=== PATIENT | female | born 1930 | race Caucasian/White ===

== ENCOUNTER → 2016-10-01 | Outpatient (CLI) | payer BC ==
[~2016-10-01] MED LIST: ASCA500 PO; ATOR-24 PO; BIMA0.038 OPB; CALCTAB5 PO; CMD/25 PO; CYAN10004 PO; EPP3/2; FERR1TAB23 PO; FLV1 PO; LISI-461 PO; LISI20TA PO; PANT40TA PO; TRAM-10 PO
[2016-10-01 08:33] LABS: INR 2.2 (0.9-1.1); PROTHROMBIN TIME (PATIENT) 24.6 SECONDS (9.0-12.0)
== END | disposition home or self-care (01) ==
LOC: C.LABOUTLO 08:07
PROVIDERS: ATTEND Internal Medicine
DX: I48.91 Unspecified atrial fibrillation (principal)

== ENCOUNTER → 2016-10-14 | Outpatient (CLI) | payer BC ==
[2016-10-14 10:19] LABS: INR 2.1 (0.9-1.1); PROTHROMBIN TIME (PATIENT) 23.4 SECONDS (9.0-12.0)
== END | disposition home or self-care (01) ==
LOC: C.LABOUTLO 09:51
PROVIDERS: ATTEND Internal Medicine
DX: I48.91 Unspecified atrial fibrillation (principal)

== ENCOUNTER → 2016-10-20 | Outpatient (CLI) | payer BC ==
[2016-10-20 10:06] LABS: INR 2.1 (0.9-1.1)
== END | disposition home or self-care (01) ==
LOC: C.LABOUTLO 09:24
PROVIDERS: ATTEND Internal Medicine
DX: I48.91 Unspecified atrial fibrillation (principal)

== ENCOUNTER → 2016-10-22 | Outpatient (CLI) | payer BC ==
[2016-10-22 09:34] LABS: BASO % 1.1 %; BASO ABS # 0.06 K/uL (0-0.2); COMPLETE YES; EOS % 8.4 %; HEMATOCRIT 29.7 % (37-47); IG% 0.2 %; LYMPH % 33.2 %; LYMPH ABS # 1.85 K/uL (1.2-3.4); MEAN CELL VOLUME 86.3 fL (80-100); MEAN CORPUSCULAR HEMOGLOBIN 27.6 pg (25-34); MEAN PLATELET VOLUME 10.8 fL (7.4-10.4); MONO % 16.2 %; NEUT % 40.9 %; PLATELET COUNT 206 K/uL (130-400); RED BLOOD COUNT 3.44 M/uL (4.2-5.4); WHITE BLOOD COUNT 5.57 K/uL (4.8-10.8)
[2016-10-22 09:41] LABS: ALT/SGPT 17 U/L (12-78); AST/SGOT 13 U/L (15-37); BLOOD UREA NITROGEN 17 mg/dl (7-18); BUN/CREATININE RATIO 13.9 (10-20); CALCIUM 9.3 mg/dl (8.5-10.1); CARBON DIOXIDE 29 mmol/L (21-32); CHLORIDE 104 mmol/L (98-107); GLUCOSE 83 mg/dl (70-99); POTASSIUM 4.1 mmol/L (3.5-5.1); SODIUM 142 mmol/L (136-145)
[2016-10-22 09:46] LABS: ALB/GLOB RATIO 0.8 (0.9-2); ALKALINE PHOSPHATASE 61 U/L (45-117); FERRITIN 133.5 ng/ml (8.0-388.0)
--- NOTE | 2016-10-25 10:16 | CODING QUERY NO DIAGNOSIS ---
TREATMENT RENDERED WITHOUT A DIAGNOSIS To promote full compliance with coding requirements relating to patient care, physician participation is requested in all cases of death surveys coder uncertainty. Please assist us with providing a diagnosis/symptom for the test(s) below: A diagnosis/symptom was not documented on your Order. A valid diagnosis/symptom is required to bill all insurances. Please remember that we are unable to code a diagnosis of rule out, probable, possible, questionable, or suspected. Tests that require a diagnosis: * CMP DIAGNOSIS: * FERRITIN DIAGNOSIS: * CBC W/ AUTO DIFF DIAGNOSIS: Provider Signature: Date: Thank you Dayanara Robles [employer] Information Management Once completed, please kindly fax back to [phone] For questions please call [phone]
== END | disposition home or self-care (01) ==
LOC: C.LABOUTLO 09:17
PROVIDERS: ATTEND Internal Medicine
DX: E78.00 Pure hypercholesterolemia, unspecified (principal); I48.0 Paroxysmal atrial fibrillation; D64.9 Anemia, unspecified

== ENCOUNTER → 2016-12-03 | Outpatient (CLI) | payer BC ==
--- NOTE | 2016-12-03 15:30 | MAMMOGRAPHY REPORT ---
UNILATERAL RIGHT DIGITAL SCREENING MAMMOGRAM TOMOSYNTHESIS WITH CAD: 12/03/2016 TECHNIQUE: Breast tomosynthesis in addition to standard 2D mammography was performed. Current study was also evaluated with a Computer Aided Detection (CAD) system. Right CC and MLO 2-D and tomosynt hesis images were obtained. COMPARISON: Comparison is made to exams dated: 12/03/2015 mammogram, 12/01/2014 mammogram, 11/25/2013 ma mmogram, 11/22/2012 mammogram, 11/17/2011 mammogram, and 11/14/2010 mammogram - [facility] enter. BREAST COMPOSITION: The tissue of the right breast is heterogeneously dense, which may obscure smal l masses. FINDINGS: There are no suspicious masses, calcifications, or areas of architectural distortion note d in the right breast. There has been no significant interval change compared to prior exams. Faraz gn-appearing right breast calcifications are not significantly changed. IMPRESSION: ACR BI-RADS CATEGORY 2: BENIGN There is no mammographic evidence of malignancy. A 1 year screening mammogram is recommended. The p atient will receive written notification of the results. Approximately 10% of breast cancers are not detected with mammography. A negative mammographic repor t should not delay biopsy if a clinically suggestive mass is present. Diana Martinez M.D. ah/:12/03/2016 15:18:58 Manager [employer]: Samira LEVY(R)(M), [facility] letter sent: Normal 1/2 BI-RADS Code: ACR BI-RADS Category 2: Benign
== END | disposition home or self-care (01) ==
LOC: C.MAMM 13:30
PROVIDERS: ATTEND Internal Medicine
DX: Z12.31 Encounter for screening mammogram for malignant neoplasm of breast (principal); Z90.12 Acquired absence of left breast and nipple

== ENCOUNTER → 2016-12-08 | Outpatient (CLI) | payer BC ==
[2016-12-08 09:51] LABS: BASO % 0.2 %; BASO ABS # 0.02 K/uL (0-0.2); COMPLETE YES; HEMATOCRIT 37.2 % (37-47); IG% 0.4 %; LYMPH % 23.1 %; LYMPH ABS # 2.74 K/uL (1.2-3.4); MEAN CELL VOLUME 84.9 fL (80-100); MEAN CORPUSCULAR HEMOGLOBIN 28.1 pg (25-34); MEAN CORPUSCULAR HGB CONC 33.1 g/dl (32-36); MONO % 9.5 %; NEUT % 65.8 %; PLATELET COUNT 251 K/uL (130-400); RED BLOOD COUNT 4.38 M/uL (4.2-5.4); WHITE BLOOD COUNT 11.88 K/uL (4.8-10.8)
[2016-12-08 10:27] LABS: ALT/SGPT 16 U/L (12-78); AST/SGOT 17 U/L (15-37); BLOOD UREA NITROGEN 31 mg/dl (7-18); BUN/CREATININE RATIO 22.4 (10-20); CALCIUM 9.8 mg/dl (8.5-10.1); CARBON DIOXIDE 27 mmol/L (21-32); CHLORIDE 103 mmol/L (98-107); CHOLESTEROL 133 mg/dl (0-200); GLUCOSE 99 mg/dl (70-99); POTASSIUM 4.1 mmol/L (3.5-5.1); SODIUM 138 mmol/L (136-145)
[2016-12-08 10:39] LABS: ALB/GLOB RATIO 0.9 (0.9-2); ALKALINE PHOSPHATASE 71 U/L (45-117); CHOLESTEROL/HDL RATIO 2.5; FERRITIN 173.5 ng/ml (8.0-388.0); HDL CHOLESTEROL 54 mg/dl; LDL CHOLESTEROL CALCULATED 59 mg/dl; THYROID STIMULATING HORMONE 0.245 uIu/ml (0.300-4.500); TRIGLYCERIDES 102 mg/dl (0-150); VERY LOW DENSITY LIPOPROT CALC 20 mg/dl
--- NOTE | 2016-12-24 10:12 | CODING QUERY MEDICAL NECESSITY ---
CQSUPPORTING DIAGNOSIS NEEDED A supporting diagnosis is required for the test/procedure performed on this patient in order for us to be reimbursed by the patient's insurance. Please provide a supporting diagnosis for the following test/procedure listed below next to the test name along with your signature. *If there is no additional diagnosis for this patient that would support the following test/procedure please document that below next to the test/procedure. Test(s)/Procedure(s) that require a supporting diagnosis: DOS 12/08/16 VITAMIN B12 TEST Provider Signature: Date: Thank you Carleen Hidalgo Health Information Management Once completed, please kindly fax back to [phone] For questions please call [phone]
== END | disposition home or self-care (01) ==
LOC: C.LAB1850 08:34
PROVIDERS: ATTEND Internal Medicine
DX: R63.4 Abnormal weight loss (principal); D64.9 Anemia, unspecified; E78.00 Pure hypercholesterolemia, unspecified; I48.0 Paroxysmal atrial fibrillation; R74.8 Abnormal levels of other serum enzymes

== ENCOUNTER → 2017-02-02 | Outpatient (CLI) | payer BC ==
[~2017-02-02] MED LIST changes: -TRAM-10 PO
[2017-02-02 09:34] LABS: BASO % 0.7 %; BASO ABS # 0.05 K/uL (0-0.2); COMPLETE YES; EOS % 3.3 %; HEMATOCRIT 32.9 % (37-47); IG% 0.3 %; LYMPH % 32.9 %; MEAN CELL VOLUME 90.1 fL (80-100); MEAN CORPUSCULAR HEMOGLOBIN 29.6 pg (25-34); MEAN CORPUSCULAR HGB CONC 32.8 g/dl (32-36); MEAN PLATELET VOLUME 10.9 fL (7.4-10.4); MONO % 9.6 %; NEUT % 53.2 %; PLATELET COUNT 197 K/uL (130-400); RED BLOOD COUNT 3.65 M/uL (4.2-5.4); WHITE BLOOD COUNT 6.69 K/uL (4.8-10.8)
[2017-02-02 10:09] LABS: BLOOD UREA NITROGEN 21 mg/dl (7-18); BUN/CREATININE RATIO 17.3 (10-20); CALCIUM 9.3 mg/dl (8.5-10.1); CARBON DIOXIDE 28 mmol/L (21-32); CHLORIDE 105 mmol/L (98-107); GLUCOSE 91 mg/dl (70-99); POTASSIUM 3.4 mmol/L (3.5-5.1); SODIUM 141 mmol/L (136-145)
[2017-02-02 10:20] LABS: THYROID STIMULATING HORMONE 0.455 uIu/ml (0.300-4.500)
== END | disposition home or self-care (01) ==
LOC: C.LAB1850 07:21
PROVIDERS: ATTEND Internal Medicine
DX: D64.9 Anemia, unspecified (principal); N28.9 Disorder of kidney and ureter, unspecified; R41.89 Other symptoms and signs involving cognitive functions and awareness

== ENCOUNTER → 2017-03-02 | Outpatient (CLI) | payer BC ==
[2017-03-02 12:40] LABS: BASO % 0.7 %; BASO ABS # 0.05 K/uL (0-0.2); COMPLETE YES; EOS % 1.8 %; HEMATOCRIT 34.3 % (37-47); IG% 0.1 %; LYMPH % 29.2 %; LYMPH ABS # 2.23 K/uL (1.2-3.4); MEAN CELL VOLUME 93.5 fL (80-100); MEAN CORPUSCULAR HEMOGLOBIN 30.8 pg (25-34); MEAN CORPUSCULAR HGB CONC 32.9 g/dl (32-36); MEAN PLATELET VOLUME 11.1 fL (7.4-10.4); MONO % 6.8 %; NEUT % 61.4 %; PLATELET COUNT 182 K/uL (130-400); RED BLOOD COUNT 3.67 M/uL (4.2-5.4); WHITE BLOOD COUNT 7.65 K/uL (4.8-10.8)
[2017-03-02 12:45] LABS: POTASSIUM 3.9 mmol/L (3.5-5.1)
[2017-03-02 12:54] LABS: FERRITIN 142.1 ng/ml (8.0-388.0)
== END | disposition home or self-care (01) ==
LOC: C.LAB 10:02
PROVIDERS: ATTEND Internal Medicine
DX: D64.9 Anemia, unspecified (principal); E87.6 Hypokalemia; I48.0 Paroxysmal atrial fibrillation

== ENCOUNTER → 2017-06-11 | Outpatient (CLI) | payer BC ==
[2017-06-11 09:46] LABS: INR 2.7 (0.9-1.1); PROTHROMBIN TIME (PATIENT) 30.1 SECONDS (9.0-12.0)
== END | disposition home or self-care (01) ==
LOC: C.LAB1850 08:18
PROVIDERS: ATTEND Internal Medicine
DX: I48.0 Paroxysmal atrial fibrillation (principal)

== ENCOUNTER → 2017-07-15 | Outpatient (CLI) | payer BC ==
[2017-07-15 12:24] LABS: HEMATOCRIT 35.8 % (37-47); MEAN CELL VOLUME 95.2 fL (80-100); MEAN CORPUSCULAR HEMOGLOBIN 31.6 pg (25-34); MEAN CORPUSCULAR HGB CONC 33.2 g/dl (32-36); MEAN PLATELET VOLUME 10.6 fL (7.4-10.4); PLATELET COUNT 205 K/uL (130-400); RED BLOOD COUNT 3.76 M/uL (4.2-5.4); WHITE BLOOD COUNT 7.79 K/uL (4.8-10.8)
[2017-07-15 13:01] LABS: ALT/SGPT 19 U/L (12-78); AST/SGOT 18 U/L (15-37); BLOOD UREA NITROGEN 22 mg/dl (7-18); BUN/CREATININE RATIO 16.4 (10-20); CALCIUM 9.8 mg/dl (8.5-10.1); CARBON DIOXIDE 25 mmol/L (21-32); CHLORIDE 105 mmol/L (98-107); CREATININE 1.32 mg/dl (0.60-1.20); GLUCOSE 166 mg/dl (70-99); POTASSIUM 3.8 mmol/L (3.5-5.1); SODIUM 139 mmol/L (136-145)
[2017-07-15 13:04] LABS: CHOLESTEROL 178 mg/dl (0-200); CHOLESTEROL/HDL RATIO 2.2; HDL CHOLESTEROL 82 mg/dl; LDL CHOLESTEROL CALCULATED 79 mg/dl; TRIGLYCERIDES 85 mg/dl (0-150); VERY LOW DENSITY LIPOPROT CALC 17 mg/dl
== END | disposition home or self-care (01) ==
LOC: C.LAB1850 10:07
PROVIDERS: ATTEND Internal Medicine
DX: E78.00 Pure hypercholesterolemia, unspecified (principal); D64.9 Anemia, unspecified; I10 Essential (primary) hypertension

== ENCOUNTER → 2017-12-04 | Outpatient (CLI) | payer BC ==
--- NOTE | 2017-12-04 13:54 | MAMMOGRAPHY REPORT ---
UNILATERAL RIGHT DIGITAL SCREENING MAMMOGRAM TOMOSYNTHESIS WITH CAD: 12/04/2017 CLINICAL HISTORY: Asymptomatic. Personal history of breast cancer. TECHNIQUE: Breast tomosynthesis in addition to standard 2D mammography was performed. Current study was also evaluated with a Computer Aided Detection (CAD) system. COMPARISON: Comparison is made to exams dated: 12/03/2015 mammogram, 11/25/2013 mammogram, 12/03/2016 keily mogram, 11/22/2012 mammogram - [facility], and 11/06/2008. BREAST COMPOSITION: The tissue of the right breast is heterogeneously dense, which may obscure small masses. FINDINGS: There are no suspicious masses, calcifications, or areas of architectural distortion noted in the right breast. There has been no significant interval change compared to prior exams. Scatter ed benign-appearing right breast calcifications are again noted. Nodular asymmetry seen within the r ight medial posterior breast is stable dating back to at least the 2013 exam. IMPRESSION: ACR BI-RADS CATEGORY 2: BENIGN There is no mammographic evidence of malignancy. A 1 year screening mammogram is recommended. The pa tient will receive written notification of the results. Approximately 10% of breast cancers are not detected with mammography. A negative mammographic report should not delay biopsy if a clinically suggestive mass is present. Diana Martinez M.D. ah/:12/04/2017 13:35:55 Miller First: Veronica LEVY(Tr)(M), [facility] letter sent: Normal 1/2 BI-RADS Code: ACR BI-RADS Category 2: Benign
== END | disposition home or self-care (01) ==
LOC: C.MAMM 12:06
PROVIDERS: ATTEND Internal Medicine
DX: Z12.31 Encounter for screening mammogram for malignant neoplasm of breast (principal); Z90.12 Acquired absence of left breast and nipple

== ENCOUNTER → 2018-01-25 | Outpatient (CLI) | payer BC ==
[2018-01-25 12:43] LABS: HEMATOCRIT 34.2 % (37-47); HEMOGLOBIN 11.6 g/dL (12.0-16.0); MEAN CELL VOLUME 94.2 fL (80-100); MEAN CORPUSCULAR HGB CONC 33.9 g/dl (32-36); MEAN PLATELET VOLUME 10.8 fL (7.4-10.4); PLATELET COUNT 190 K/uL (130-400); RED CELL DISTRIBUTION WIDTH CV 14.1 % (11.5-14.5); RED CELL DISTRIBUTION WIDTH SD 48.6 fL (36.4-46.3); WHITE BLOOD COUNT 7.47 K/uL (4.8-10.8)
[2018-01-25 12:53] LABS: BLOOD UREA NITROGEN 17 mg/dl (7-18); CARBON DIOXIDE 27 mmol/L (21-32); CREATININE 1.29 mg/dl (0.60-1.20); GLUCOSE 142 mg/dl (70-99); POTASSIUM 3.5 mmol/L (3.5-5.1); SODIUM 136 mmol/L (136-145)
[2018-01-25 12:57] LABS: ALT/SGPT 22 U/L (12-78); AST/SGOT 23 U/L (15-37)
== END | disposition home or self-care (01) ==
LOC: C.LAB1850 10:01
PROVIDERS: ATTEND Internal Medicine
DX: D64.9 Anemia, unspecified (principal); E78.00 Pure hypercholesterolemia, unspecified

== ENCOUNTER → 2018-05-03 | Outpatient (CLI) | payer BC ==
[2018-05-03 12:42] LABS: INR 3.1 (0.9-1.1)
== END | disposition home or self-care (01) ==
LOC: C.LAB1850 10:45
PROVIDERS: ATTEND Internal Medicine
DX: I48.0 Paroxysmal atrial fibrillation (principal)

== ENCOUNTER 2019-08-10 11:22 | Inpatient (IN) ==
[2019-08-10 12:29] LABS: Basophils # (auto) 0.02 K/uL (0-0.2); Basophils % (auto) 0.3 %; Eosinophils # (auto) 0.04 K/uL (0-0.5); Eosinophils % (auto) 0.7 %; Hematocrit (blood only) 33.3 % (37-47); Hemoglobin 11.3 g/dL (12.0-16.0); Immature Granulocytes # (auto) 0.01 K/uL (0.00-0.02); Immature Granulocytes % (auto) 0.2 %; Lymphocytes # (auto) 1.27 K/uL (1.2-3.4); Mean Corpuscular Hemoglobin 32.7 pg (25-34); Mean Corpuscular Hgb Conc 33.9 g/dL (32-36); Mean Corpuscular Volume 96.2 fL (80-100); Mean Platelet Volume 10.8 fL (7.4-10.4); Monocytes # (auto) 0.43 K/uL (0.11-0.59); Monocytes % (auto) 7.5 %; Neutrophils # (auto) 3.99 K/uL (1.4-6.5); Neutrophils % (auto) 69.3 %; Platelet Count 157 K/uL (130-400); RDW Coefficient of Variation 13.6 % (11.5-14.5); RDW Standard Deviation 46.9 fL (36.4-46.3); Red Blood Count 3.46 M/uL (4.2-5.4); White Blood Count 5.76 K/uL (4.8-10.8)
[2019-08-10] MEDS ORDERED: SODIUM CHLORIDE 0.9% 500 ML IV SCH (12:30)
[2019-08-10 12:36] LABS: Albumin Level 3.8 gm/dl (3.4-5.0); BUN Creatinine Ratio 15.6 (10-20); Calcium 9.9 mg/dl (8.5-10.1); Est GFR (African American) 51.3; Est GFR (Non-African American) 44.3; Potassium 3.9 mmol/L (3.5-5.1)
[2019-08-10 12:39] LABS: Albumin Globulin Ratio 1.4 (0.9-2); Bilirubin,Total 0.7 mg/dl (0.2-1); Globulin 2.7 gm/dl (2.5-4.0); Total Protein 6.5 gm/dl (6.4-8.2)
[2019-08-10] MEDS ORDERED: EPINEPHRINE ADULT AUTO-INJECT 0.3 MG SYR IM PRN (15:52)
[2019-08-10] MEDS ORDERED: ACETAMINOPHEN 325 MG TAB PO PRN (15:53)
--- NOTE | 2019-08-10 16:03 | History & Physical Report ---
Date of Service August 10, 2019 Assessment & Plan (1) STEC (Shiga toxin-producing Escherichia coli): Avoid any antibiotics, monitor diarrhea, Blood cultures has been sent, Further stool studies have been sent including stool culture, white blood cell count in stool, C. difficile to rule out any concomitant pathology Gentle IV fluid hydration Appears to have generalized weakness secondary to above, will consult physical therapy and Occupational Therapy (2) Atrial fibrillation: Continue Eliquis Appears to be rate controlled (3) GERD (gastroesophageal reflux disease): Continue Protonix (4) Anemia: Appears to be at baseline, will defer to primary care physician History of Present Illness 88-year-old female with past medical history of atrial fibrillation, essential hypertension, dyslipidemia who had developed diarrhea about 2 weeks ago Stool culture at that time grew Shiga toxin producing E. coli, patient did not take any antibiotics and improved spontaneously, family member said that she might have taken some Imodium. This morning patient developed severe diarrhea and called her cousin who was involved in her care. She brought her to the hospital for further evaluation. Patient is slightly confused, history taking is unreliable but apparently started to develop diarrhea again, number of bowel movement times is unknown, denies any fever, chills, shortness of breath, denies any burning sensation in the urine or blood, denies any blood in stool Primary Care Provider: Armando Mcconnell MD Allergies Allergy/AdvReac Type Severity Reaction Status Date / Time bee venom protein (honey bee) Allergy Unknown . Verified 08/10/19 12:04 Home Medications Home Medications Medication Instructions Recorded Confirmed Type ascorbic acid (vitamin C) 500 mg 500 mg PO BIDM tab 06/08/19 08/10/19 History tablet atorvastatin 40 mg tablet 40 mg PO QAM tab 06/08/19 08/10/19 History bimatoprost 0.01 % eye drops 1 drops OP .COMPLEX ml 06/08/19 08/10/19 History calcium carbonate 600 mg calcium 600 mg PO BID tab 06/08/19 08/10/19 History (1,500 mg) tablet cyanocobalamin (vitamin B-12) 1,000 mcg PO DAILY #30 tab 06/08/19 08/10/19 History 1,000 mcg tablet epinephrine 0.3 mg/0.3 mL 0.3 mg IM UD PRN ea 06/08/19 08/10/19 History injection, auto-injector ferrous sulfate 325 mg (65 mg 325 mg PO PM tab 06/08/19 08/10/19 History iron) tablet folic acid 1 mg tablet 4 mg PO PM tab 06/08/19 08/10/19 History lisinopril 20 1 tab PO QAM tab 06/08/19 08/10/19 History mg-hydrochlorothiazide 25 mg tablet pantoprazole 40 mg tablet,delayed 40 mg PO DAILYBB tab 06/08/19 08/10/19 History release varicella-zoster gE vac,2 of 2 50 0.5 mcg IM .COMPLEX ea 06/08/19 08/10/19 History mcg IM suspension apixaban 2.5 mg tablet 2.5 mg PO BID #180 tab 07/05/19 08/10/19 Rx Past Med/Surg History Medical History Atrial fibrillation (Chronic) Back pain (Acute) GERD (gastroesophageal reflux disease) (Chronic) Knee pain, left (Acute) Surgical History S/P hysterectomy S/P mastectomy Family History Father Myocardial infarction Coronary heart disease Social History Preferred Language: Setswana Communication Ability: Effective Visual Impairment: No Limitations Hearing Ability: Normal marital status: / Feels Safe at Home: Yes Smoking Status: Never smoker Physical Activity Frequency: Daily Seatbelt Use: always Review of Systems Review of Systems: Review of system Constitutional: No fever / no chills / no sweats / no weakness / no fatigue Eyes: no blurring of vision / no eye pain / no discharge / no redness ENT: no hearing loss / no epistaxis /no swallowing problems Respiratory: no cough / no wheezing / no SOB / no hemoptysis Cardiovascular: no Chest pain / no lower extremity edema / no palpitation Abdomen: Positive for diarrhea, no pain / no nausea / no vomiting / no constipation Musculoskeletal: no joint pain / no muscle pain / no joint swelling Genitourinary: no dysuria / no incontinence / no urinary retention Neurologic: no focal weakness / no numbness/tingling / no ataxia Psychiatric: no depression symptoms / no anxiety / no insomnia Endocrine: no excessive thirst / no excessive urination Hematologic: no abnormal bleeding / no bruising / no LN swelling Skin: No rash / no pallor Physical Exam Physical Exam: Physical examination General elderly frail female appears to be comfortable, not in acute distress HEENT: Atraumatic , normocephalic /no jaundice /no pallor /anicteric /no dry mucous membrane /normal external ear inspection Neck: Supple /no swelling /central trach Heart: S1/S2 normal/regular rate and rhythm/no gallop /no rub /no murmur Lungs: Clear to auscultation bilaterally/normal chest with expansion/no rhonchi/no rales/no wheezing/no use of accessory muscles of respiration Abdomen: Soft/nontender/no guarding/no rebound/no organomegaly/no pulsatile mass Musculoskeletal: No swelling/no edema/no tenderness/normal range of motion Neuro exam: Awake alert oriented 3/cranial nerves II through XII appear to be intact/sensation intact/moves all extremities/no abnormal movements Psychiatric evaluation: No depressed mood/normal affect Skin: No rash on exposed skin area/no erythema Extremity: Normal pulse/no pitting edema/no clubbing or cyanosis Endocrine/lymphatic: No obvious lymphadenopathy /no lymphedema Results & Data Vital Signs (Past 12 Hours) Vital Signs Temp Pulse Pulse Resp BP BP Pulse Ox 08/10/19 14:14 84 16 151/58 H 97 08/10/19 13:00 70 16 96 08/10/19 12:35 69 08/10/19 12:07 95 08/10/19 11:24 37.1 C 75 20 157/71 H 97 Code Status & VTE Plan Code Status Full code PG Care Time/CCT Total # of Minutes Spent Total Time Spent with Patient: 35 minutes total time spent is greater than 50% in coordination of care (as documented) at patient's floor/unit and/or counseling patient/family discussion of care with nursing staff (1) Anemia Anemia type: unspecified type Qualified Code(s): D64.9 - Anemia, unspecified
--- NOTE | 2019-08-10 16:14 | Emergency Department Note ---
Entered by Devora Shahid acting as a scribe for Giovanni Dan MD History of Present Illness General Chief complaint: Diarrhea Stated complaint: DIARRHEA, REFERRED BY RN AT DR MCCONNELL Time Seen by Provider: 08/10/19 12:03 Source: patient History of Present Illness Provider complaint: Diarrhea Onset (ago): day(s) 2 Pain Consistency: + intermittent Relieved By: + none Exacerbated By: + none Associated symptoms: + denies other symptoms (Hematochezia) and + nausea/vomiting (Positive nausea. Negative vomiting. ); no fever/chills The patient is a 88 year old female who presents to the Emergency Room with complaints of intermittent diarrhea that started back up again 2 days ago after it stopped for a little while. The patient states she saw her PCP 2 weeks ago for diarrhea and he told her the stool sample was negative. The patient reports that her symptoms are not relieved nor exacerbated by anything specific. The patient states she has been nauseous but denies any vomiting. The patient also denies any hematochezia or fever/chills. The patient notes that her stools have been very watery and loose. The patient denies any recent foreign travel or taking any antibiotics recently or any sick contacts. She does live by herself with her dog. Home Medications Home Medications Medication Instructions Recorded Confirmed Type ascorbic acid (vitamin C) 500 mg 500 mg PO BIDM tab 06/08/19 08/10/19 History tablet atorvastatin 40 mg tablet 40 mg PO QAM tab 06/08/19 08/10/19 History bimatoprost 0.01 % eye drops 1 drops OP .COMPLEX ml 06/08/19 08/10/19 History calcium carbonate 600 mg calcium 600 mg PO BID tab 06/08/19 08/10/19 History (1,500 mg) tablet cyanocobalamin (vitamin B-12) 1,000 mcg PO DAILY #30 tab 06/08/19 08/10/19 History 1,000 mcg tablet epinephrine 0.3 mg/0.3 mL 0.3 mg IM UD PRN ea 06/08/19 08/10/19 History injection, auto-injector ferrous sulfate 325 mg (65 mg 325 mg PO PM tab 06/08/19 08/10/19 History iron) tablet folic acid 1 mg tablet 4 mg PO PM tab 06/08/19 08/10/19 History lisinopril 20 1 tab PO QAM tab 06/08/19 08/10/19 History mg-hydrochlorothiazide 25 mg tablet pantoprazole 40 mg tablet,delayed 40 mg PO DAILYBB tab 06/08/19 08/10/19 History release varicella-zoster gE vac,2 of 2 50 0.5 mcg IM .COMPLEX ea 06/08/19 08/10/19 History mcg IM suspension apixaban 2.5 mg tablet 2.5 mg PO BID #180 tab 07/05/19 08/10/19 Rx Allergies Allergy/AdvReac Type Severity Reaction Status Date / Time bee venom protein (honey bee) Allergy Unknown . Verified 08/10/19 12:04 Past Med/Surg History Medical History Atrial fibrillation (Chronic) Back pain (Acute) GERD (gastroesophageal reflux disease) (Chronic) Knee pain, left (Acute) Surgical History S/P hysterectomy S/P mastectomy Family History Father Myocardial infarction Coronary heart disease Social History Preferred Language: Icelandic Communication Ability: Effective Visual Impairment: No Limitations Hearing Ability: Normal marital status: / Feels Safe at Home: Yes Smoking Status: Never smoker Physical Activity Frequency: Daily Seatbelt Use: always Review of Systems See HPI for pertinent positives & negatives. and A total of 10 systems reviewed and were otherwise negative Physical Exam Vital Signs Vital Signs - 24 hr 08/10/19 11:24 08/10/19 12:07 08/10/19 12:35 Temperature 37.1 C Temperature Source Oral Pulse Rate 75 69 Pulse Rate [Left] Pulse Rhythm Regular Respiratory Rate 20 Respiratory Effort / Characteristics Respiratory Depth Blood Pressure 157/71 H Blood Pressure [Left Arm] Blood Pressure Mean 99 Blood Pressure Mean [Left Arm] Blood Pressure Position [Left Arm] Pulse Oximetry 97 95 Oxygen Delivery Method Room Air Room Air Room Air Sepsis Recent Fever Within 48 Hours No Sepsis Action Taken by Nursing No Action Required 08/10/19 13:00 08/10/19 14:14 Temperature Temperature Source Pulse Rate Pulse Rate [Left] 70 84 Pulse Rhythm Respiratory Rate 16 16 Respiratory Effort / Characteristics Non-Labored Spontaneous Non-Labored Spontaneous Respiratory Depth Normal Normal Blood Pressure Blood Pressure [Left Arm] 151/58 H Blood Pressure Mean Blood Pressure Mean [Left Arm] 89 Blood Pressure Position [Left Arm] Lying Pulse Oximetry 96 97 Oxygen Delivery Method Room Air Room Air Sepsis Recent Fever Within 48 Hours Sepsis Action Taken by Nursing Constitutional: Vital signs reviewed. Eyes: Pupils are equal round reactive to light. Conjunctiva are noninjected. ENT: Pharynx is clear without erythema or exudate. Mucous membranes are dry. Neck supple without meningeal signs. Respiratory: Clear to auscultation bilaterally. Breath sounds are equal bilaterally. Cardiovascular: Regular rate and rhythm. No rubs or gallops. GI: Soft, nondistended and nontender. Bowel sounds are present. Musculoskeletal: No peripheral edema. No lower extremity tenderness. Integumentary: No cyanosis. Neurological: The patient is awake and alert. No focal deficits. Psychiatric: Normal affect. Course Course 1211: Past medical records reviewed. The patient was evaluated in room C02B. A complete history and physical exam was performed. 1323: Patient was unable to give stool sample. Recommended hospitalization. The patient stated that she does not want to stay. Neither I or nor her daughter could convince her. I did discuss potential consequences of leaving including organ failure, loss of independence, and . Patient is thinking it over. 1354: The patient is agreeable to stay. I spoke with Dr. Bolivar- Hospitalist about the patient's case and he will accept her for further evaluation. He additionally requested blood cultures be done. Administered Medications Discontinued Medications Sodium Chloride (Nss) 500 mls @ 999 mls/hr IV .Q31M [facility] Stop: 08/10/19 13:00 Last Infusion: 08/10/19 13:20 Dose: 0 mls/hr Documented by: [id number] Admin: 08/10/19 12:44 Dose: 999 mls/hr Documented by: [id number] Medical Decision Making Differential Diagnosis Differential diagnosis includes: HUS, E. Coli with shiga toxin, dehydration, food borne illness, electrolyte imbalance, as well as others were considered. Medical Records Attestation: I reviewed the patient's medical records. Seen July 25 for diarrhea. Stool culture grew E. Coli shiga toxins. Home Medications Current Medication List: was personally reviewed by me Laboratory Data Attestation: I reviewed the patient's lab results. Result diagrams: 08/10/19 11:55 08/10/19 11:55 Lab Results 08/10/19 08/10/19 Range/Units 11:55 11:55 WBC 5.76 (4.8-10.8) K/uL RBC 3.46 L (4.2-5.4) M/uL Hgb 11.3 L (12.0-16.0) g/dL Hct 33.3 L (37-47) % MCV 96.2 (80-100) fL MCH 32.7 (25-34) pg MCHC 33.9 (32-36) g/dL RDW Std Deviation 46.9 H (36.4-46.3) fL RDW Coeff of Leeanne 13.6 (11.5-14.5) % Plt Count 157 (130-400) K/uL MPV 10.8 H (7.4-10.4) fL Immature Gran % (Auto) 0.2 % Neut % (Auto) 69.3 % Lymph % (Auto) 22.0 % [place] % (Auto) 7.5 % Eos % (Auto) 0.7 % Baso % (Auto) 0.3 % Immature Gran # (Auto) 0.01 (0.00-0.02) K/uL Neut # (Auto) 3.99 (1.4-6.5) K/uL Lymph # (Auto) 1.27 (1.2-3.4) K/uL [place] # (Auto) 0.43 (0.11-0.59) K/uL Eos # (Auto) 0.04 (0-0.5) K/uL Baso # (Auto) 0.02 (0-0.2) K/uL Sodium 139 (136-145) mmol/L Potassium 3.9 (3.5-5.1) mmol/L Chloride 107 (98-107) mmol/L Carbon Dioxide 25 (21-32) mmol/L Anion Gap 7.0 (3-11) BUN 17 (7-18) mg/dl Creatinine 1.11 (0.6-1.2) mg/dl Est Cr Clr Drug Dosing 29.0 ml/min Est GFR ( Amer) 51.3 Est GFR (Non-Af Amer) 44.3 BUN/Creatinine Ratio 15.6 (10-20) Glucose 95 (70-99) mg/dl Calcium 9.9 (8.5-10.1) mg/dl Total Bilirubin 0.7 (0.2-1) mg/dl AST 16 (15-37) U/L ALT 12 (12-78) U/L Alkaline Phosphatase 51 (45-117) U/L Total Protein 6.5 (6.4-8.2) gm/dl Albumin 3.8 (3.4-5.0) gm/dl Globulin 2.7 (2.5-4.0) gm/dl Albumin/Globulin Ratio 1.4 (0.9-2) Blood Pressure Blood Pressure Findings: Elevated blood pressure Blood Pressure Disposition: further management by hospitalist MDM Narrative I did evaluate the patient as noted above. The patient is presenting with diarrhea for 2 weeks. She did get better for a number of days but her diarrhea worsened 2 days ago. Review of her cultures shows Shiga toxin producing E. coli. IV access was established. I did treat her with normal saline IV. I did order stool cultures and C. difficile testing but she was unable to give us a sample. I did order and review the patient's blood work as noted in the electronic medical record. She has mild anemia but this is chronic. She does not have signs of hemolytic uremic syndrome. I did discuss the test results with the patient. I did recommend hospitalization for continued fluid management as well as frequent blood checks to watch for HUS. She initially was very hesitant to stay but her daughter and I were able to convince her. I did discuss the case with the hospitalist and community case manager. Impression & Plan STEC (Shiga toxin-producing Escherichia coli), Anemia, Diarrhea Discharge Plan Visit Data Chief Complaint: Diarrhea Stated Complaint: DIARRHEA, REFERRED BY RN AT DR MCCONNELL ED Provider: Giovanni Dan Discharge Problem: STEC (Shiga toxin-producing Escherichia coli), Anemia, Diarrhea Forms Stand Alone Forms: My [facility] Prescriptions Prescriptions: No Action atorvastatin 40 mg tablet 40 mg PO QAM RF: 0 calcium carbonate 600 mg calcium (1,500 mg) tablet 600 mg PO BID RF: 0 epinephrine [EpiPen 2-Marco A] 0.3 mg/0.3 mL auto-injector 0.3 mg IM UD PRN (Reason: venom-induced anaphylaxis) RF: 0 folic acid 1 mg tablet 4 mg PO PM RF: 0 ferrous sulfate 325 mg (65 mg iron) tablet 325 mg PO PM RF: 0 lisinopril-hydrochlorothiazide 20-25 mg tablet 1 tab PO QAM RF: 0 pantoprazole [Protonix] 40 mg tablet,delayed release (DR/EC) 40 mg PO DAILYBB RF: 0 ascorbic acid (vitamin C) 500 mg tablet 500 mg PO BIDM RF: 0 Lumigan 0.01 % drops 1 drops OP .COMPLEX RF: 0 cyanocobalamin (vitamin B-12) 1,000 mcg tablet 1,000 mcg PO DAILY Qty: 30 RF: 0 varicella-zoster gE vac,2 of 2 50 mcg suspension for reconstitution 0.5 mcg IM .COMPLEX RF: 0 Eliquis 2.5 mg tablet 2.5 mg PO BID Qty: 180 RF: 3 Referrals Referrals: Armando Mcconnell MD [Primary Care Provider] - Discharge Problem: Anemia Qualifiers: Anemia type: unspecified type Qualified Code(s): D64.9 - Anemia, unspecified Diarrhea Qualifiers: Diarrhea type: infectious Qualified Code(s): A09 - Infectious gastroenteritis and colitis, unspecified The scribe's documentation has been prepared under my direction and personally reviewed by me in its entirety. I confirm that the note above accurately reflects all work, treatment, procedures, and medical decision making performed by me.
[2019-08-10] MEDS ORDERED: SODIUM CHLORIDE 0.9% 1000ML 1,000 ML IV SCH (16:59)
[2019-08-10] MEDS: ASCORBIC ACID 500 MG TAB PO SCH (17:27)
[2019-08-10] MEDS: CALCIUM CARBONATE 1250MG TAB PO SCH (20:04)
[2019-08-10] MEDS: APIXABAN 2.5 MG TAB PO SCH (20:47)
[2019-08-10] MEDS ORDERED: BIMATOPROST 0.01% OP SOLN 2.5 ML BTL OPL SCH (21:00)
[2019-08-10] MEDS ORDERED: FERROUS SULFATE 325 MG TAB PO SCH (21:00)
[2019-08-10] MEDS ORDERED: FOLIC ACID 1 MG TAB PO SCH (21:00)
[2019-08-11] MEDS ORDERED: INFLUENZA VACCINE HIGH DOSE 65+ 0.5 ML SYR IM ONE (06:00)
[2019-08-11] MEDS ORDERED: PNEUMOCOCCAL POLYSACCHARIDES 25 MCG/0.5 ML VIAL/SYR IM ONE (06:00)
[2019-08-11] MEDS ORDERED: INFLUENZA ADMINISTRATION CHARGE ONE (06:00)
[2019-08-11] MEDS ORDERED: PNEUMOCOCCAL ADMINISTRATION CHARGE ONE (06:00)
[2019-08-11] MEDS ORDERED: PANTOprazole 40 MG TAB PO SCH (06:30)
[2019-08-11 07:22] LABS: Hematocrit (blood only) 34.4 % (37-47); Hemoglobin 11.5 g/dL (12.0-16.0); Mean Corpuscular Hemoglobin 32.4 pg (25-34); Mean Corpuscular Hgb Conc 33.4 g/dL (32-36); Mean Corpuscular Volume 96.9 fL (80-100); Mean Platelet Volume 10.9 fL (7.4-10.4); Platelet Count 149 K/uL (130-400); RDW Coefficient of Variation 13.5 % (11.5-14.5); RDW Standard Deviation 47.8 fL (36.4-46.3); Red Blood Count 3.55 M/uL (4.2-5.4); White Blood Count 4.89 K/uL (4.8-10.8)
[2019-08-11] MEDS: APIXABAN 2.5 MG TAB PO SCH (07:44)
[2019-08-11] MEDS: CALCIUM CARBONATE 1250MG TAB PO SCH (07:45)
[2019-08-11] MEDS: ASCORBIC ACID 500 MG TAB PO SCH (07:45)
[2019-08-11 07:59] LABS: Albumin Level 3.4 gm/dl (3.4-5.0); BUN Creatinine Ratio 15.1 (10-20); Calcium 9.9 mg/dl (8.5-10.1); Creatinine Clr Calc Pharmacy 30.1 ml/min; Est GFR (African American) 53.7; Est GFR (Non-African American) 46.3; Magnesium 1.8 mg/dl (1.8-2.4); Potassium 3.9 mmol/L (3.5-5.1)
[2019-08-11 08:02] LABS: Albumin Globulin Ratio 1.2 (0.9-2); Bilirubin,Total 0.7 mg/dl (0.2-1); Globulin 2.9 gm/dl (2.5-4.0); Total Protein 6.3 gm/dl (6.4-8.2)
[2019-08-11] MEDS ORDERED: LISINOPRIL/HCTZ 20/25MG 1 TAB PO SCH (09:00)
[2019-08-11] MEDS ORDERED: CYANOCOBALAMIN 500 MCG TABLET (VITAMIN B-12) PO SCH (09:00)
[2019-08-11] MEDS ORDERED: ATORVASTATIN 40 MG TAB PO SCH (09:00)
--- NOTE | 2019-08-11 15:16 | Discharge Summary ---
Date of Service August 11, 2019 Principal Diagnosis Diarrhea, self-resolving - Likely viral Discharge Exam Constitutional WD/WN, vitals as above Eyes EOM intact bilaterally; no conjunctival abnormality ENMT external ear and nose normal, oropharynx normal Neck trachea midline, no thyromegaly normal visual inspection Respiratory normal respiratory effort, lungs clear to auscultation no respiratory distress Cardiovascular RRR, no murmur, no edema Gastrointestinal (Abdomen) normal bowel sounds, soft, nontender, no hepatosplenomegaly Inspection/Auscultation: abdomen normal to inspection; abdomen not distended Musculoskeletal no cyanosis or clubbing, extremities motor strength 5/5 Skin no rashes, warm and dry Neurologic moves all extremities and awake Psychiatric Orientation: alert, oriented to person and cooperative Discharge Data Allergies Allergy/AdvReac Type Severity Reaction Status Date / Time bee venom protein (honey bee) Allergy Unknown . Verified 08/10/19 12:04 Consultations 08/10/19 13:53 ED Decision to Admit Stat Hospital Course (1) STEC (Shiga toxin-producing Escherichia coli): She had a prior episode of E. coli diarrhea, and was admitted for concern for that; however, she had no diarrhea or BMs at all in the 24 hours she was admitted. No fever or white count. No signs/symptoms of any infection. [place] fine and wanted to go home. - Likely viral gastroenteritis - Encouraged to take Imodium for occasional, light diarrhea. Told of "red flag" symptoms and when to return for further care. (2) Atrial fibrillation: Continue Eliquis Appears to be rate controlled (3) GERD (gastroesophageal reflux disease): Continue Protonix (4) Anemia: Appears to be at baseline, will defer to primary care physician Total Time Total Time Spent Total Time Spent (In Minutes): 25 Discharge Plan Discharge Items Patient Disposition: Home - Self-Care Reason For Visit: SHIGELLOSIS Discharge Diagnosis: Diarrhea - Likely viral Activity: Resume your previous activity Non-emergency contact: Primary Care Provider Call non-emergency contact if: your symptoms worsen and your temperature is above 101 Follow-up/Referrals: Armando Mcconnell MD [Primary Care Provider] - Diet: Heart Healthy Addtl Attending Provider Instructions: You were admitted for diarrhea. However, you had no episodes of diarrhea (or any bowel movement) in the 24 hours you were admitted. This was likely a mild viral illness that your body took care of on its own. If you get diarrhea from time to time, please take [id number] Imodium as the bottle prescribes. If you have "red flag" symptoms such as nausea, dehydration, inability to eat or drink, fevers, abdominal pain, or other concerning symptoms, please call Dr. Mcconnell's office or go to the ER. Pending Studies at Discharge: No Stand-Alone Forms: My [facility] Explore.To Yellow Pages, Smoking Cessation Medications and DC Order Prescriptions: Continued atorvastatin 40 mg tablet 40 mg PO QAM RF: 0 calcium carbonate 600 mg calcium (1,500 mg) tablet 600 mg PO BID RF: 0 epinephrine [EpiPen 2-Marco A] 0.3 mg/0.3 mL auto-injector 0.3 mg IM UD PRN (Reason: venom-induced anaphylaxis) RF: 0 folic acid 1 mg tablet 4 mg PO PM RF: 0 ferrous sulfate 325 mg (65 mg iron) tablet 325 mg PO PM RF: 0 lisinopril-hydrochlorothiazide 20-25 mg tablet 1 tab PO QAM RF: 0 pantoprazole [Protonix] 40 mg tablet,delayed release (DR/EC) 40 mg PO DAILYBB RF: 0 ascorbic acid (vitamin C) 500 mg tablet 500 mg PO BIDM RF: 0 bimatoprost 0.01 % drops 1 drops OP .COMPLEX RF: 0 cyanocobalamin (vitamin B-12) 1,000 mcg tablet 1,000 mcg PO DAILY Qty: 30 RF: 0 varicella-zoster gE vac,2 of 2 50 mcg suspension for reconstitution 0.5 mcg IM .COMPLEX RF: 0 Eliquis 2.5 mg tablet 2.5 mg PO BID Qty: 180 RF: 3 Discharge Orders: Discharge Order (Routine); Ordered 08/11/19 Ordered By: Chris Bajwa Admission Data Admit Date/Time: 08/10/19 15:54 Attending Provider: Chris Bajwa Admit Provider: Sanya Alexander Primary Care Provider: Armando Mcconnell Other Providers: Chris Bajwa
== END 2019-08-11 15:52 | disposition home or self-care (01) | DRG 392 ==
LOC: ED 11:22 → SUATTDRO 15:54 → 2W 15:54